=== PATIENT | female | born 1990 | race Caucasian/White ===

== ENCOUNTER → 2023-05-26 14:44 | Outpatient (REF) | payer BC, SELFPAY ==
[2023-05-26 16:35] LABS: ALT (SGPT) 22 U/L (0-35); AST (SGOT) 22 U/L (14-36); Alkaline Phosphatase 83 U/L (38-126); Blood Urea Nitrogen 15 mg/dl (7-17); Calcium 9.6 mg/dl (8.4-10.2); Carbon Dioxide 26 mmol/L (22-30); Chloride 104 mmol/L (98-107); Glucose 103 mg/dl (70-99); Potassium 4.3 mmol/L (3.5-5.1); Sodium 138 mmol/L (135-145); Total Bilirubin 0.3 mg/dl (0.2-1.3); Total Protein 7.4 g/dl (6.3-8.2); eGFR > 60.00
[2023-05-26 16:51] LABS: Prolactin 19.1 ng/ml (3.0-18.6)
[2023-05-27 09:00] LABS: Glycohemoglobin (HgbA1c) 5.9 % (4.0-5.6)
[2023-05-28 22:24] LABS: Anti-Thrombin III Activity 110 % (76-128)
[2023-05-29 00:52] LABS: Protein S Free Antigen 103 % (55-123)
[2023-05-29 19:49] LABS: Factor 2 Activity(Prothrombin) 115 % (86-150)
[2023-05-30 18:45] LABS: Factor V Leiden Heterozygous; Factor V Leiden Specimen Whole Blood
== END ==
LOC: REG 14:44
PROVIDERS: ATTENDING PHYSICIAN Obstetrics & Gynecology; FAMILY PHYSICIAN Emergency Medicine
DX: R73.03 Prediabetes (principal); Z82.49 Family history of ischemic heart disease and other diseases of the circulatory system; R79.89 Other specified abnormal findings of blood chemistry
CPT/HCPCS: 36415; 80053; 81241; 83036; 84146; 85210; 85300; 85306

== ENCOUNTER → 2023-06-25 13:33 | Outpatient (REF) | payer BC, SELFPAY ==
[2023-06-25 18:35] LABS: % Basophils 0.5 % (0-2); % Eosinophils 1.5 % (0-6); % Immature Granulocytes 0.4 % (0-0.5); % Lymphocytes 37.8 % (20.5-51.1); % Monocytes 4.5 % (1.7-9.3); % Neutrophils 55.3 % (42.2-75.2); Absolute Eosinophils 0.1 10^3/uL (0-0.7); Absolute Lymphocytes 3.1 10^3/uL (1.2-3.4); Absolute Monocytes 0.4 10^3/uL (0.1-0.6); Absolute Neutrophils 4.5 10^3/uL (1.4-6.5); Hematocrit 39.5 % (37.0-47.0); Hemoglobin 12.5 g/dL (12.0-16.0); Mean Corp Hgb Conc. 31.6 g/dL (33.0-37.0); Mean Corpuscular Hgb 25.9 pg (27.0-31.0); Mean Platelet Volume 10.2 fL (7.4-10.4); Nucleated Red Blood Cells % 0 %; Platelet Count 308 10^3/uL (130-400); Red Blood Cell Count 4.82 10^6/uL (4.20-5.40); Red Cell Dist. Width 14.3 % (11.5-14.5); White Blood Cell Count 8.1 10^3/uL (4.8-10.8)
[2023-06-25 18:41] LABS: Erythrocyte Sed Rate 24 mm/hour (0-20)
[2023-06-25 18:48] LABS: Iron 64 ug/dl (37-170)
[2023-06-25 19:09] LABS: FSH 4.4 mIU/ml; Luteinizing Hormone 4.91 mIU/ml; Vitamin D, 25-OH*** 14.8 ng/mL (30-80)
[2023-06-25 19:22] LABS: TSH Reflex To Free T4 2.59 uIU/ml (0.47-4.68)
[2023-06-25 19:29] LABS: Ferritin 25.5 ng/ml (6.24-137)
[2023-06-27 11:59] LABS: Thyroglobulin Antibodies <0.9 IU/mL (0.0-4.0); Thyroid Peroxidase Ab (TPO) 0.3 IU/mL (0.0-9.0)
[2023-06-27 20:55] LABS: ANA, IgG Reflex to HEp-2 None Detected (None Detected)
[2023-06-28 15:07] LABS: SSA 52 (Ro)(ENA) Ab, IgG 3 AU/mL (0-40); SSA 60 (Ro)(ENA) Ab, IgG 0 AU/mL (0-40); SSB (La)(ENA) Ab, IgG 3 AU/mL (0-40)
== END ==
LOC: CLAB 13:33
PROVIDERS: ATTENDING PHYSICIAN Family Medicine
DX: R53.83 Other fatigue (principal); R60.0 Localized edema; R68.2 Dry mouth, unspecified; R79.89 Other specified abnormal findings of blood chemistry
CPT/HCPCS: 36415; 82306; 82728; 83001; 83002; 83540; 84443; 85025; 85652; 86038; 86140; 86235; 86376; 86800

== ENCOUNTER → 2023-07-13 12:57 | Outpatient (REF) | payer BC, SELFPAY | LOC: RAD 12:57 | PROVIDERS: ATTENDING PHYSICIAN Student in an Organized Health Care Education/Training Program; FAMILY PHYSICIAN Family Medicine | DX: J45.901 Unspecified asthma with (acute) exacerbation (principal) | CPT/HCPCS: 71046 ==

== ENCOUNTER → 2023-07-23 06:58 | Outpatient (REF) | payer BC, SELFPAY | LOC: RAD 06:58 | PROVIDERS: ATTENDING PHYSICIAN Family Medicine | DX: R60.0 Localized edema (principal) | CPT/HCPCS: 76536 ==

== ENCOUNTER → 2023-08-24 12:17 | Outpatient (REF) | payer BC, SELFPAY | LOC: CLAB 12:17 | PROVIDERS: ATTENDING PHYSICIAN Family Medicine | DX: R30.0 Dysuria (principal) | CPT/HCPCS: 87077; 87086; 87186 ==

== ENCOUNTER → 2023-09-15 15:52 | Outpatient (REF) | payer BC, SELFPAY | LOC: CLAB 15:52 | PROVIDERS: ATTENDING PHYSICIAN Family Medicine | DX: R39.9 Unspecified symptoms and signs involving the genitourinary system (principal) | CPT/HCPCS: 87086 ==

== ENCOUNTER → 2023-10-15 17:46 | Outpatient (REF) | payer BC, SELFPAY ==
[2023-10-15 18:44] LABS: % Basophils 0.6 % (0-2); % Eosinophils 1.5 % (0-6); % Immature Granulocytes 0.3 % (0-0.5); % Lymphocytes 42.7 % (20.5-51.1); % Monocytes 6.2 % (1.7-9.3); % Neutrophils 48.7 % (42.2-75.2); Absolute Eosinophils 0.1 10^3/uL (0-0.7); Absolute Lymphocytes 2.8 10^3/uL (1.2-3.4); Absolute Monocytes 0.4 10^3/uL (0.1-0.6); Absolute Neutrophils 3.2 10^3/uL (1.4-6.5); Hematocrit 40.4 % (37.0-47.0); Hemoglobin 12.8 g/dL (12.0-16.0); Mean Corp Hgb Conc. 31.7 g/dL (33.0-37.0); Mean Corpuscular Hgb 25.5 pg (27.0-31.0); Mean Corpuscular Volume 80.6 fL (81.0-99.0); Mean Platelet Volume 10.2 fL (7.4-10.4); Nucleated Red Blood Cells % 0 %; Platelet Count 326 10^3/uL (130-400); Red Blood Cell Count 5.01 10^6/uL (4.20-5.40); Red Cell Dist. Width 15.6 % (11.5-14.5); White Blood Cell Count 6.6 10^3/uL (4.8-10.8)
[2023-10-15 19:09] LABS: Beta HCG Quantitative < 2.39 mIU/ml; Prolactin 14.1 ng/ml (3.0-18.6)
[2023-10-15 19:23] LABS: TSH Reflex To Free T4 2.33 uIU/ml (0.47-4.68)
== END ==
LOC: CLAB 17:46
PROVIDERS: ATTENDING PHYSICIAN Obstetrics & Gynecology
DX: N93.9 Abnormal uterine and vaginal bleeding, unspecified (principal)
CPT/HCPCS: 36415; 84146; 84443; 84702; 85025

== ENCOUNTER → 2023-10-16 07:35 | Outpatient (REF) | payer BC, SELFPAY | LOC: RAD 07:35 | PROVIDERS: ATTENDING PHYSICIAN Obstetrics & Gynecology; FAMILY PHYSICIAN Family Medicine | DX: N93.9 Abnormal uterine and vaginal bleeding, unspecified (principal) | CPT/HCPCS: 76830; 76856 ==

== ENCOUNTER → 2023-11-13 16:18 | Outpatient (REF) | payer BC, SELFPAY ==
[2023-11-13 17:43] LABS: % Basophils 0.8 % (0-2); % Eosinophils 1.3 % (0-6); % Immature Granulocytes 0.1 % (0-0.5); % Lymphocytes 38.3 % (20.5-51.1); % Monocytes 5.2 % (1.7-9.3); % Neutrophils 54.3 % (42.2-75.2); Absolute Basophils 0.1 10^3/uL (0-0.2); Absolute Eosinophils 0.1 10^3/uL (0-0.7); Absolute Monocytes 0.4 10^3/uL (0.1-0.6); Absolute Neutrophils 4.3 10^3/uL (1.4-6.5); Hematocrit 38.9 % (37.0-47.0); Hemoglobin 12.6 g/dL (12.0-16.0); Mean Corp Hgb Conc. 32.4 g/dL (33.0-37.0); Mean Corpuscular Hgb 25.5 pg (27.0-31.0); Mean Corpuscular Volume 78.7 fL (81.0-99.0); Mean Platelet Volume 9.8 fL (7.4-10.4); Nucleated Red Blood Cells % 0 %; Platelet Count 338 10^3/uL (130-400); Red Blood Cell Count 4.94 10^6/uL (4.20-5.40); Red Cell Dist. Width 14.9 % (11.5-14.5); White Blood Cell Count 7.9 10^3/uL (4.8-10.8)
[2023-11-13 17:53] LABS: Erythrocyte Sed Rate 22 mm/hour (0-20)
[2023-11-13 18:24] LABS: Cortisol, Random 7.4 ug/dl; TSH 2.92 uIU/ml (0.47-4.68)
[2023-11-13 18:27] LABS: Ferritin 22.5 ng/ml (6.24-137)
[2023-11-13 19:01] LABS: ALT (SGPT) 27 U/L (0-35); AST (SGOT) 30 U/L (14-36); Albumin 4.3 g/dl (3.5-5.0); Alkaline Phosphatase 94 U/L (38-126); Blood Urea Nitrogen 10 mg/dl (7-17); Calcium 9.8 mg/dl (8.4-10.2); Carbon Dioxide 26 mmol/L (22-30); Chloride 101 mmol/L (98-107); Glucose 100 mg/dl (70-99); Iron 58 ug/dl (37-170); Potassium 4.4 mmol/L (3.5-5.1); Sodium 140 mmol/L (135-145); Total Bilirubin 0.5 mg/dl (0.2-1.3); Total Protein 7.4 g/dl (6.3-8.2); eGFR > 60.00
[2023-11-14 09:57] LABS: Glycohemoglobin (HgbA1c) 5.8 % (4.0-5.6)
[2023-11-15 23:02] LABS: IgA 315 mg/dl (70-400)
== END ==
LOC: CLAB 16:18
PROVIDERS: ATTENDING PHYSICIAN Family Medicine; REFERRING PHYSICIAN Internal Medicine Gastroenterology
DX: R11.0 Nausea (principal); R53.83 Other fatigue; R79.89 Other specified abnormal findings of blood chemistry; R70.0 Elevated erythrocyte sedimentation rate; R73.03 Prediabetes
CPT/HCPCS: 36415; 80053; 82533; 82728; 82784; 83036; 83516; 83540; 84443; 85025; 85652; 86140; 86618

== ENCOUNTER → 2023-11-26 16:55 | Outpatient (REF) | payer BC, SELFPAY ==
[2023-11-26 17:22] LABS: Erythrocyte Sed Rate 19 mm/hour (0-20)
[2023-11-28 23:55] LABS: CCP Antibody IgG/IgA 3 Units (0-19)
[2023-11-29 02:01] LABS: ANA, IgG Reflex to HEp-2 None Detected (None Detected)
[2023-11-29 02:12] LABS: ds-DNA Ab, IgG Reflex To Titer 4 IU (0-24)
== END ==
LOC: CLAB 16:55
PROVIDERS: ATTENDING PHYSICIAN Family Medicine
DX: R76.8 Other specified abnormal immunological findings in serum (principal); H20.9 Unspecified iridocyclitis
CPT/HCPCS: 36415; 85652; 86038; 86140; 86200; 86225; 86430

== ENCOUNTER → 2023-12-17 13:48 | Outpatient (REF) | payer BC, SELFPAY ==
[2023-12-17 19:13] LABS: Urine Albumin Trace (Neg - Trace); Urine Bilirubin Negative (Negative); Urine Character Very Cloudy (Clear); Urine Color Yellow; Urine Glucose Negative (Negative); Urine Ketone Negative (Negative); Urine Leukocyte Negative (Negative); Urine Nitrite Negative (Negative); Urine Occult Blood 1+ (Negative); Urine Urobilinogen Negative (Neg - 1+)
[2023-12-17 19:36] LABS: Urine Squamous Cell 0-2 /LPF (Few)
[2023-12-17 19:37] LABS: Urine Bacteria Many (Negative); Urine Red Blood Cell 0-2 /HPF (0-2); Urine White Cell 0-2 /HPF (0-5)
== END ==
LOC: CLAB 13:48
PROVIDERS: ATTENDING PHYSICIAN Family Medicine
DX: R30.0 Dysuria (principal)
CPT/HCPCS: 81003; 81015; 87077; 87086

== ENCOUNTER → 2024-02-04 14:33 | Outpatient (REF) | payer BC, SELFPAY ==
[2024-02-04 17:37] LABS: % Basophils 0.7 % (0-2); % Eosinophils 1.5 % (0-6); % Immature Granulocytes 0.4 % (0-0.5); % Lymphocytes 33.9 % (20.5-51.1); % Monocytes 5.4 % (1.7-9.3); % Neutrophils 58.1 % (42.2-75.2); Absolute Basophils 0.1 10^3/uL (0-0.2); Absolute Eosinophils 0.1 10^3/uL (0-0.7); Absolute Lymphocytes 2.5 10^3/uL (1.2-3.4); Absolute Monocytes 0.4 10^3/uL (0.1-0.6); Absolute Neutrophils 4.2 10^3/uL (1.4-6.5); Hematocrit 42.3 % (37.0-47.0); Hemoglobin 12.9 g/dL (12.0-16.0); Mean Corp Hgb Conc. 30.5 g/dL (33.0-37.0); Mean Platelet Volume 10.2 fL (7.4-10.4); Nucleated Red Blood Cells % 0 %; Platelet Count 321 10^3/uL (130-400); Red Blood Cell Count 5.16 10^6/uL (4.20-5.40); White Blood Cell Count 7.2 10^3/uL (4.8-10.8)
[2024-02-04 17:47] LABS: ALT (SGPT) 26 U/L (0-35); AST (SGOT) 25 U/L (14-36); Albumin 4.3 g/dl (3.5-5.0); Alkaline Phosphatase 82 U/L (38-126); Blood Urea Nitrogen 12 mg/dl (7-17); Calcium 9.3 mg/dl (8.4-10.2); Carbon Dioxide 27 mmol/L (22-30); Chloride 102 mmol/L (98-107); Glucose 99 mg/dl (70-99); HDL Cholesterol 52 mg/dl; LDL Cholesterol, Calculated 116 mg/dl; Potassium 4.5 mmol/L (3.5-5.1); Sodium 141 mmol/L (135-145); Total Bilirubin 0.4 mg/dl (0.2-1.3); Total Cholesterol 187 mg/dl (50-199); Total Protein 7.3 g/dl (6.3-8.2); Triglyceride 96 mg/dl (10-149); Very Low Density Lipoprotein 19 mg/dl (0-30); eGFR > 60.00
[2024-02-04 18:02] LABS: Vitamin D, 25-OH*** 19.8 ng/mL (30-80)
[2024-02-04 18:16] LABS: TSH 2.96 uIU/ml (0.47-4.68)
== END ==
LOC: CLAB 14:33
PROVIDERS: ATTENDING PHYSICIAN Family Medicine
DX: Z00.00 Encounter for general adult medical examination without abnormal findings (principal); E55.9 Vitamin D deficiency, unspecified; R73.03 Prediabetes; R30.0 Dysuria
CPT/HCPCS: 36415; 80053; 80061; 82306; 84443; 85025; 87086

== ENCOUNTER → 2024-03-25 12:46 | Outpatient (REF) | payer BC, SELFPAY | LOC: CLAB 12:46 | PROVIDERS: ATTENDING PHYSICIAN Family Medicine | DX: R30.0 Dysuria (principal) | CPT/HCPCS: 87077; 87086; 87147 ==

== ENCOUNTER → 2024-04-13 16:17 | Outpatient (REF) | payer BC, SELFPAY | LOC: CLAB 16:17 | PROVIDERS: ATTENDING PHYSICIAN Family Medicine | DX: R39.9 Unspecified symptoms and signs involving the genitourinary system (principal) | CPT/HCPCS: 87086 ==

== ENCOUNTER → 2024-05-13 15:50 | Outpatient (REF) | payer BC, SELFPAY ==
[2024-05-13 17:46] LABS: % Basophils 0.7 % (0-2); % Eosinophils 1.2 % (0-6); % Immature Granulocytes 0.5 % (0-0.5); % Lymphocytes 29.2 % (20.5-51.1); % Monocytes 6.5 % (1.7-9.3); % Neutrophils 61.9 % (42.2-75.2); Absolute Basophils 0.1 10^3/uL (0-0.2); Absolute Eosinophils 0.1 10^3/uL (0-0.7); Absolute Lymphocytes 2.2 10^3/uL (1.2-3.4); Absolute Monocytes 0.5 10^3/uL (0.1-0.6); Absolute Neutrophils 4.7 10^3/uL (1.4-6.5); Hemoglobin 13.1 g/dL (12.0-16.0); Mean Corp Hgb Conc. 30.5 g/dL (33.0-37.0); Mean Corpuscular Volume 82.2 fL (81.0-99.0); Mean Platelet Volume 9.8 fL (7.4-10.4); Nucleated Red Blood Cells % 0 %; Platelet Count 306 10^3/uL (130-400); Red Blood Cell Count 5.23 10^6/uL (4.20-5.40); Red Cell Dist. Width 15.4 % (11.5-14.5); White Blood Cell Count 7.6 10^3/uL (4.8-10.8)
[2024-05-13 18:11] LABS: Erythrocyte Sed Rate 10 mm/hour (0-20)
[2024-05-13 18:13] LABS: ALT (SGPT) 31 U/L (0-35); AST (SGOT) 26 U/L (14-36); Albumin 4.1 g/dl (3.5-5.0); Alkaline Phosphatase 96 U/L (38-126); Blood Urea Nitrogen 11 mg/dl (7-17); Calcium 9.6 mg/dl (8.4-10.2); Carbon Dioxide 27 mmol/L (22-30); Chloride 103 mmol/L (98-107); Glucose 106 mg/dl (70-99); HDL Cholesterol 54 mg/dl; LDL Cholesterol, Calculated 123 mg/dl; Potassium 4.6 mmol/L (3.5-5.1); Sodium 137 mmol/L (135-145); Total Bilirubin 0.5 mg/dl (0.2-1.3); Total Cholesterol 202 mg/dl (50-199); Total Protein 7.3 g/dl (6.3-8.2); Triglyceride 125 mg/dl (10-149); Very Low Density Lipoprotein 25 mg/dl (0-30); eGFR > 60.00
[2024-05-13 18:33] LABS: Vitamin D, 25-OH*** 15.4 ng/mL (30-80)
[2024-05-13 18:47] LABS: Cortisol, Random 11.7 ug/dl; TSH 2.33 uIU/ml (0.47-4.68)
[2024-05-14 09:26] LABS: Glycohemoglobin (HgbA1c) 5.7 % (4.0-5.6)
== END ==
LOC: CLAB 15:50
PROVIDERS: ATTENDING PHYSICIAN Family Medicine
DX: R42 Dizziness and giddiness (principal); R53.83 Other fatigue; R52 Pain, unspecified; R63.5 Abnormal weight gain; E55.9 Vitamin D deficiency, unspecified; R73.03 Prediabetes
CPT/HCPCS: 36415; 80053; 80061; 82306; 82533; 83036; 84443; 85025; 85652; 86038; 86140

== ENCOUNTER → 2024-08-12 17:19 | Outpatient (REF) | payer BC, SELFPAY ==
[2024-08-12 17:39] LABS: ALT (SGPT) 26 U/L (0-35); AST (SGOT) 26 U/L (14-36); Albumin 4.1 g/dl (3.5-5.0); Alkaline Phosphatase 93 U/L (38-126); Blood Urea Nitrogen 10 mg/dl (7-17); Calcium 9.4 mg/dl (8.4-10.2); Carbon Dioxide 26 mmol/L (22-30); Chloride 107 mmol/L (98-107); Glucose 91 mg/dl (70-99); Potassium 4.6 mmol/L (3.5-5.1); Sodium 138 mmol/L (135-145); Total Bilirubin 0.5 mg/dl (0.2-1.3); Total Protein 7.2 g/dl (6.3-8.2); eGFR > 60.00
== END ==
LOC: CLAB 17:19
PROVIDERS: ATTENDING PHYSICIAN Family Medicine
DX: R53.83 Other fatigue (principal); W57.XXXA Bitten or stung by nonvenomous insect and other nonvenomous arthropods, initial encounter
CPT/HCPCS: 36415; 80053; 86140; 86618

== ENCOUNTER → 2024-08-16 15:39 | Outpatient (REF) | payer BC, SELFPAY ==
[2024-08-16 17:38] LABS: Erythrocyte Sed Rate 16 mm/hour (0-20)
== END ==
LOC: CLAB 15:39
PROVIDERS: ATTENDING PHYSICIAN Family Medicine
DX: R53.83 Other fatigue (principal)
CPT/HCPCS: 36415; 85652

== ENCOUNTER → 2024-09-08 15:46 | Outpatient (REF) | payer BC, SELFPAY | LOC: RAD 15:46 | PROVIDERS: ATTENDING PHYSICIAN Family Medicine | DX: M25.562 Pain in left knee (principal) | CPT/HCPCS: 73564 ==

== ENCOUNTER → 2024-10-05 14:08 | Outpatient (REF) | payer BC, SELFPAY ==
[2024-10-05 16:39] LABS: Urine Character Slightly Cloudy (Clear)
== END ==
LOC: CLAB 14:08
PROVIDERS: ATTENDING PHYSICIAN Family Medicine
DX: J02.9 Acute pharyngitis, unspecified (principal); R30.9 Painful micturition, unspecified
CPT/HCPCS: 81003; 87077; 87086; 87147

== ENCOUNTER → 2024-11-28 13:17 | Outpatient (REF) | payer OTHER, SELFPAY | LOC: RAD 13:17 | PROVIDERS: ATTENDING PHYSICIAN Nurse Practitioner Family | DX: M79.661 Pain in right lower leg (principal) | CPT/HCPCS: 73590 ==

== ENCOUNTER → 2024-12-08 08:01 | Outpatient (REF) | payer OTHER, SELFPAY | LOC: WOUND 08:01 | PROVIDERS: ATTENDING PHYSICIAN Surgery; FAMILY PHYSICIAN Family Medicine | DX: L97.212 Non-pressure chronic ulcer of right calf with fat layer exposed (principal); E66.01 Morbid (severe) obesity due to excess calories; E55.9 Vitamin D deficiency, unspecified; F41.1 Generalized anxiety disorder; R73.03 Prediabetes | CPT/HCPCS: 11042; 99203 ==

== ENCOUNTER → 2024-12-15 09:42 | Outpatient (REF) | payer BC, SELFPAY ==
[2024-12-14 17:56] LABS: Hematocrit 40.7 % (37.0-47.0); Hemoglobin 12.9 g/dL (12.0-16.0); Mean Corp Hgb Conc. 31.7 g/dL (33.0-37.0); Mean Corpuscular Volume 79.8 fL (81.0-99.0); Nucleated Red Blood Cells % 0 %; Platelet Count 349 10^3/uL (130-400); Red Cell Dist. Width 14.9 % (11.5-14.5)
[2024-12-14 18:02] LABS: ALT (SGPT) 28 U/L (0-35); AST (SGOT) 25 U/L (14-36); Albumin 4.2 g/dl (3.5-5.0); Alkaline Phosphatase 101 U/L (38-126); Blood Urea Nitrogen 11 mg/dl (7-17); Calcium 9.4 mg/dl (8.4-10.2); Carbon Dioxide 27 mmol/L (22-30); Chloride 104 mmol/L (98-107); Glucose 130 mg/dl (70-99); Iron 54 ug/dl (37-170); Potassium 4.2 mmol/L (3.5-5.1); Sodium 137 mmol/L (135-145); Total Protein 7.4 g/dl (6.3-8.2); eGFR > 60.00
[2024-12-14 18:12] LABS: Total Iron Binding Capacity 378 ug/dl (265-497)
[2024-12-14 18:38] LABS: Ferritin 22.7 ng/ml (6.24-137)
== END ==
LOC: WOUND 09:42
PROVIDERS: ATTENDING PHYSICIAN Surgery; FAMILY PHYSICIAN Family Medicine
DX: L97.212 Non-pressure chronic ulcer of right calf with fat layer exposed (principal); E66.01 Morbid (severe) obesity due to excess calories; E55.9 Vitamin D deficiency, unspecified; F41.1 Generalized anxiety disorder; R73.03 Prediabetes
CPT/HCPCS: 11042; 36415; 80053; 82728; 83540; 83550; 85025; 87070; 87075; 87077; 87147; 87186; 87205

== ENCOUNTER → 2024-12-26 08:08 | Outpatient (REF) | payer BC, SELFPAY | LOC: WOUND 08:08 | PROVIDERS: ATTENDING PHYSICIAN Surgery; FAMILY PHYSICIAN Family Medicine | DX: L97.212 Non-pressure chronic ulcer of right calf with fat layer exposed (principal); E66.01 Morbid (severe) obesity due to excess calories; E55.9 Vitamin D deficiency, unspecified; F41.1 Generalized anxiety disorder; R73.03 Prediabetes | CPT/HCPCS: 11042 ==

== ENCOUNTER → 2024-12-30 11:23 | Outpatient (REF) | payer BC, SELFPAY | LOC: CLAB 11:23 | PROVIDERS: ATTENDING PHYSICIAN Nurse Practitioner Family | DX: J03.90 Acute tonsillitis, unspecified (principal) | CPT/HCPCS: 87070 ==

== ENCOUNTER → 2025-01-03 09:13 | Outpatient (REF) | payer BC, SELFPAY | LOC: WOUND 09:13 | PROVIDERS: ATTENDING PHYSICIAN Surgery; FAMILY PHYSICIAN Family Medicine | DX: L97.212 Non-pressure chronic ulcer of right calf with fat layer exposed (principal); E66.01 Morbid (severe) obesity due to excess calories; E55.9 Vitamin D deficiency, unspecified; F41.1 Generalized anxiety disorder; R73.03 Prediabetes | CPT/HCPCS: 11042 ==

== ENCOUNTER → 2025-01-09 14:12 | Outpatient (REF) | payer BC, SELFPAY | LOC: WOUND 14:12 | PROVIDERS: ATTENDING PHYSICIAN Surgery; FAMILY PHYSICIAN Family Medicine | DX: L97.212 Non-pressure chronic ulcer of right calf with fat layer exposed (principal); E66.01 Morbid (severe) obesity due to excess calories; E55.9 Vitamin D deficiency, unspecified; F41.1 Generalized anxiety disorder; R73.03 Prediabetes | CPT/HCPCS: 11042 ==

== ENCOUNTER 2025-01-19 09:10 | Outpatient (REF) | payer BC, SELFPAY | END 2025-01-19 23:59 | disposition home or self-care (01) | LOC: WOUND 09:10 | PROVIDERS: ATTENDING PHYSICIAN Surgery; FAMILY PHYSICIAN Family Medicine | DX: L97.212 Non-pressure chronic ulcer of right calf with fat layer exposed (principal); E66.01 Morbid (severe) obesity due to excess calories; E55.9 Vitamin D deficiency, unspecified; F41.1 Generalized anxiety disorder; R73.03 Prediabetes | CPT/HCPCS: 11042 ==

== ENCOUNTER 2025-02-07 09:12 | Outpatient (REF) | payer BC, SELFPAY | END 2025-02-07 23:59 | disposition home or self-care (01) | LOC: WOUND 09:12 | PROVIDERS: ATTENDING PHYSICIAN Registered Nurse; FAMILY PHYSICIAN Family Medicine | DX: L97.212 Non-pressure chronic ulcer of right calf with fat layer exposed (principal); E66.01 Morbid (severe) obesity due to excess calories; E55.9 Vitamin D deficiency, unspecified; F41.1 Generalized anxiety disorder; R73.03 Prediabetes | CPT/HCPCS: 11042 ==

== ENCOUNTER → 2025-02-10 07:36 | Outpatient (REF) | payer BC, SELFPAY | LOC: RAD 07:36 | PROVIDERS: ATTENDING PHYSICIAN Family Medicine | DX: R05.3 Chronic cough (principal) | CPT/HCPCS: 71046 ==

== ENCOUNTER 2025-02-16 08:59 | Outpatient (REF) | payer BC, SELFPAY | END 2025-02-16 23:59 | disposition home or self-care (01) | LOC: WOUND 08:59 | PROVIDERS: ATTENDING PHYSICIAN Registered Nurse; FAMILY PHYSICIAN Family Medicine | DX: L97.212 Non-pressure chronic ulcer of right calf with fat layer exposed (principal); E66.01 Morbid (severe) obesity due to excess calories; E55.9 Vitamin D deficiency, unspecified; F41.1 Generalized anxiety disorder; R73.03 Prediabetes | CPT/HCPCS: 99213 ==

== ENCOUNTER 2025-02-22 08:40 | Outpatient (REF) | payer BC, SELFPAY | END 2025-02-22 23:59 | disposition home or self-care (01) | LOC: WOUND 08:40 | PROVIDERS: ATTENDING PHYSICIAN Registered Nurse; FAMILY PHYSICIAN Family Medicine | DX: L97.212 Non-pressure chronic ulcer of right calf with fat layer exposed (principal); E66.01 Morbid (severe) obesity due to excess calories; E55.9 Vitamin D deficiency, unspecified; F41.1 Generalized anxiety disorder; R73.03 Prediabetes | CPT/HCPCS: 99213 ==